=== PATIENT | male | born 1980 | race Caucasian/White ===

== ENCOUNTER 2017-06-01 19:47 | Emergency (ER) | payer BC ==
[2017-06-01 19:59] VITALS: BP 127/86
[2017-06-01] MEDS ORDERED: Albuterol/Ipratropium NEB.SOL* Albuterol 2.5 MG/Ipratropium 0.5 MG 3 ML INH ONE (20:54)
--- NOTE | 2017-06-01 20:59 | UC ---
Dank Hoffman Gabriel, scribed for Rebecca Chavira MD on 06/01/17 at 2054 . Respiratory Complaint HPI - HPI Summary HPI Summary: This patient is a 36 year old M presenting to [facility] with a chief complaint of a dry cough that began 3 weeks ago. Symptoms alleviated by nothing, he has tried robitussin with no relief. Patient reports sore throat. Patient denies nausea, ear pain, fever, and diarrhea. The patient describes a tickle in his throat on exhaling that is causing him to cough. He had the flu over two weeks ago and the cough has persisted. Pt states other sx have improved, but continues with coughing causing poor sleep. Patients medication reviewed during this visit. - History of Current Complaint Chief Complaint: UCRespiratory Stated Complaint: COUGH, AND CHEST CONGESTION Time Seen by Provider: 06/01/17 20:43 Hx Obtained From: Patient Onset/Duration: Lasting Weeks - 2.5, Still Present Timing: Constant Severity Initially: Mild Severity Currently: Mild Pain Intensity: 0 Pain Scale Used: 0-10 Numeric Character: Cough: Nonproductive Associated Signs And Symptoms: Positive: Negative - nausea, ear pain, fever, and diarrhea. - Allergies/Home Medications Allergies/Adverse Reactions: Allergies Allergy/AdvReac Type Severity Reaction Status Date / Time DUST Allergy Severe HEADACHE, Uncoded 06/01/17 19:59 CONGESTION Home Medications: Home Medications Acetaminophen [Mapap] 500 mg PO PRN 06/01/17 [History] guaiFENesin LIQ* [Robitussin*] PRN 06/01/17 [History] PMH/Surg Hx/FS Hx/Imm Hx Previously Healthy: Yes Other History Of: Negative For: HIV, Hepatitis B, Hepatitis C - Surgical History Surgical History: Yes Surgery Procedure, Year, and Place: T&A - Family History Known Family History: Positive: Cardiac Disease, Hypertension, Diabetes Negative: Renal Disease, Respiratory Disease, Seizure Disorder, Blood Disorder - Social History Occupation: Employed Full-time Lives: With Family Alcohol Use: Occasionally Substance Use Type: None Smoking Status (MU): Never Smoked Tobacco Review of Systems ENT: Sore Throat Respiratory: Cough All Other Systems Reviewed And Are Negative: Yes Physical Exam Triage Information Reviewed: Yes Appearance: Well-Appearing, No Pain Distress, Well-Nourished Vital Signs: Initial Vital Signs Temp 97.2 F 06/01/17 19:55 Pulse 93 01/30/18 19:55 Resp 16 06/01/17 19:55 BP 127/86 06/01/17 19:55 Pulse Ox 97 06/01/17 19:55 Vital Signs Reviewed: Yes Eye Exam: Normal Eyes: Positive: Conjunctiva Clear ENT Exam: Normal ENT: Positive: Pharynx normal, Pharyngeal erythema, Nasal congestion, TMs normal , Sinus tenderness, Other. Negative: Uvula midline Dental Exam: Normal Dental: Positive: Percussion Tenderness @ Neck exam: Normal Neck: Positive: Supple, Nontender, No Lymphadenopathy Respiratory: Positive: No respiratory distress, No accessory muscle use. Negative: Normal breath sounds - rhonci right mid lung scatted wheeze Cardiovascular Exam: Normal Cardiovascular: Positive: RRR, No Murmur Abdominal Exam: Normal Abdomen Description: Positive: Nontender, No Organomegaly, Soft Bowel Sounds: Positive: Present Musculoskeletal Exam: Normal Musculoskeletal: Positive: Strength Intact Neurological Exam: Normal Neurological: Positive: Alert Psychological Exam: Normal Skin Exam: Normal Diagnostic Evaluation - Laboratory O2 Sat by Pulse Oximetry: 97 - Radiology Radiology Interpretation Completed By: Radiologist - CXR: no evidence for cardiopulmonary disease. physician has reviewed this radiology report and agrees. Re-Evaluation - Re-Evaluation First Eval Re-Evaluation Time: 22:03 Change: Improved - The patient's coughing has improved. wheezing resolved cxr neg for pna Will Rx z pack, mdi, rbitussin with codeine, tessalon pearls d/w pt secretion precautions, motrin/apap codeine precautions Respiratory Course/Dx - Course Course Of Treatment: Pt with flu like sx 3 weeks ago. pt with persistent cough preventing sleep. dry and coarse. No fever, chills. pt with rhonci right sided scatted wheeze. will give neb. cxr. reassess - Differential Dx/Diagnosis Provider Diagnoses: acute bronchitis Discharge - Discharge Plan Condition: Stable Disposition: HOME Prescriptions: Azithromycin TAB* [Zithromax TAB (Z-ZEFERINO) 250 mg #6 tabs] 250 mg PO DAILY #4 tab Benzonatate CAP* [Tessalon 100 MG CAP*] 100 mg PO TID PRN #15 cap PRN Reason: Cough guaiFENesin/CODIEN 100MG-10MG* [Robitussin AC 100Mg-10Mg*] 10 ml PO Q8HR PRN # 20 udc MDD 30 PRN Reason: Cough Patient Education Materials: Acute Bronchitis (ED) Forms: *Work Release Referrals: No Primary Care Phys,NOPCP [Primary Care Provider] - Additional Instructions: - STay well hydrated. Drink plenty of non-alcoholic, non-caffinated beverages - Take Robitussin with codeine as prescribed for your cough. Codeine is a narcotic and may cause drowsiness. Do not drive, operate machinery or drink alcohol while taking this medication -Okay to alternate ibuprofen (Advil, Motrin) and Tylenol product every 3 hours for pain or fever. Take with food. Do NOT take for more than 4-5 days. - Take antibiotics as prescribed until gone - Use inhaler, 2 puffs every 4 hours today and tomorrow, then every 4 hours as needed - These infections are spread by oral secretions. Do not share eating or drinking utensils. Frequent hand washing is important. Clean items that may get your secretions on them such as cell phones, ipads, computer mouse, television remotes. After you have been on antibiotics for 2 days, change your pillowcase and your toothbrush - contact your doctor or return with questions or concerns The documentation as recorded by the Dank hilario Gabriel accurately reflects the service I personally performed and the decisions made by me, Rebecca Chavira MD.
--- NOTE | 2017-06-01 21:19 | RAD ---
INDICATION: Persistent cough and rhonchi left upper lobe. COMPARISON: There are no prior studies available for comparison. TECHNIQUE: Dual-energy PA and lateral views of the chest were obtained. FINDINGS: The heart is within normal limits in size. Mediastinal and hilar contours appear within normal limits. The lungs are clear. No pleural effusion is present. IMPRESSION: NO EVIDENCE FOR ACTIVE CARDIOPULMONARY DISEASE.
[2017-06-01] MEDS ORDERED: Azithromycin TAB* 250 MG PO ONE (22:04)
[2017-06-01] MEDS ORDERED: guaiFENesin/CODIEN 100MG-10MG* 5 ML UDC PO ONE (22:04)
[2017-06-01] MEDS ORDERED: Albuterol HFA INHALER* 8 gm MDI INH ONE (22:06)
== END 2017-06-01 22:15 | disposition home or self-care (01) ==
LOC: UCEAST 19:47
DX: J20.9 Acute bronchitis, unspecified (principal)
CPT/HCPCS: 71046; 99203; A9270-GY; G0463